=== PATIENT | male | born 1985 | race Caucasian/White ===

== ENCOUNTER 2016-10-18 20:26 | Emergency (ER) | payer MEDICAID ==
[~2016-10-18] VITALS: Ht 167.6 cm; Wt 75.0 kg
[2016-10-18] MEDS ORDERED: LORazepam 1MG TABLET ONE (20:49)
[2016-10-18 20:52] LABS: HEMATOCRIT 46.6 % (39.2-51.8); WHITE BLOOD COUNT 7.8 x10^3/uL (3.4-10)
[2016-10-18] MEDS ORDERED: SODIUM CHLORIDE 0.9% 1,000ML IVBOLUS ONE (21:00)
[2016-10-18] MEDS ORDERED: LORazepam 1MG TABLET PO ONE (21:00)
[2016-10-18] MEDS ORDERED: SODIUM CHLORIDE FLUSH 10ML SYR IVF ONE (21:00)
[2016-10-18] MEDS ORDERED: PLEASE ENTER HEIGHT AND WEIGHT MC SCH (21:00)
[2016-10-18 21:06] LABS: BLOOD UREA NITROGEN 8 mg/dL (7-18)
[2016-10-18 21:07] LABS: ACETAMINOPHEN < 2 mcg/mL (10-30)
[2016-10-18 21:10] LABS: IS PT STATUS REG ER OR PRE ER? YES
[2016-10-18] MEDS ORDERED: CALCIUM GLUCONATE 4.6 MEQ/10 ML IVPush ONE (21:30)
[2016-10-18 21:53] VITALS: BP 108/64
[2016-10-18] MEDS ORDERED: CALCIUM GLUCONATE 4.6 MEQ in SODIUM CHLORIDE 0.9% 50 ML IV ONE (22:00)
== END 2016-10-18 22:53 | disposition home or self-care (01) ==
LOC: ED 22:47
DX: E83.51 Hypocalcemia (principal); F10.129 Alcohol abuse with intoxication, unspecified
CPT/HCPCS: 36415; 70450; 71010; 80048; 80307; 80329; 82040; 82140; 82330; 83735; 84484; 85025; 85610; 93005; 99284; J0610; J7030; G0480

== ENCOUNTER 2019-08-08 16:08 | Emergency (ER) | payer MEDICAID ==
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
== END 2019-08-08 17:24 | disposition left against medical advice (07) ==
LOC: MERGE 16:08 → EDBD 16:08 → ED 17:00
DX: R41.82 Altered mental status, unspecified (principal); Z53.21 Procedure and treatment not carried out due to patient leaving prior to being seen by health care provider

== ENCOUNTER 2019-08-08 18:28 | Emergency (ER) | payer MEDICAID ==
[~2019-08-08] VITALS: Ht 167.6 cm; Wt 70.5 kg
[2019-08-08 18:35] VITALS: BP 147/57
[2019-08-08] MEDS ORDERED: LIDOCAINE-MPF 1%, 5ML ONE ×2 (18:44→19:55)
[2019-08-08] MEDS ORDERED: KETOROLAC 30 MG/1 ML IVPush ONE (19:00)
[2019-08-08] MEDS ORDERED: DIPH,PERTUSS(ACELL),TET VAC/PF 0.5 ML IM-VACC ONE ×2 (19:00→19:13)
[2019-08-08] MEDS ORDERED: KETOROLAC 30 MG/1 ML ONE (19:12)
[2019-08-08] MEDS ORDERED: LIDOCAINE-MPF 1%, 5ML INFIL ONE (19:30)
== END 2019-08-08 21:38 | disposition home or self-care (01) ==
LOC: ED 21:29
DX: S61.411A Laceration without foreign body of right hand, initial encounter (principal); F10.129 Alcohol abuse with intoxication, unspecified; W25.XXXA Contact with sharp glass, initial encounter; Y93.89 Activity, other specified; Y92.098 Other place in other non-institutional residence as the place of occurrence of the external cause; Y99.8 Other external cause status; Y90.9 Presence of alcohol in blood, level not specified
CPT/HCPCS: 12001; 73130; 90471; 90715; 96374; 99284; J1885